=== PATIENT | male | born 1950 | race African-American/Black ===

== ENCOUNTER 2023-06-23 23:51 | Emergency (ER) | payer OTHER, MEDICAID ==
[~2023-06-23] VITALS: Ht 175.3 cm; Wt 70.3 kg
[2023-06-24 00:48] VITALS: BP 212/132; RESP 18; TEMP 97.9; O2SAT 99
[2023-06-24 00:50] VITALS: PULSE 85
[2023-06-24] MEDS ORDERED: ACETAMINOPHEN 325MG TABLET PO ONE (02:15)
[2023-06-24] MEDS ORDERED: IBUPROFEN 800MG TABLET PO ONE (02:15)
[2023-06-24] MEDS ORDERED: IBUPROFEN 400MG TABLET PO NR (02:15)
[2023-06-24] MEDS ORDERED: GABA-532 MT (05:37)
[2023-06-24] MEDS ORDERED: TOPUD MT (05:37)
[2023-06-24] MEDS ORDERED: IBUP-1523 MT (05:37)
== END 2023-06-24 06:14 | disposition home or self-care (01) ==
LOC: ER 23:51
DX: M46.52 Other infective spondylopathies, cervical region (principal); F12.10 Cannabis abuse, uncomplicated; M79.601 Pain in right arm
CPT/HCPCS: 72040; 73030; 99284

== ENCOUNTER 2024-03-22 20:20 | Emergency (ER) | payer MEDICARE, MEDICAID ==
[~2024-03-22] VITALS: Ht 172.7 cm; Wt 75.0 kg
[~2024-03-22 20:20] MED LIST: GABA-532 MT; IBUP-1523 MT; TOPUD MT
[2024-03-22 20:43] VITALS: BP 177/93; PULSE 18; RESP 18; TEMP 98.5; O2SAT 98
== END 2024-03-23 00:23 | disposition left against medical advice (07) ==
LOC: ER 20:20
DX: H57.11 Ocular pain, right eye (principal); Z53.21 Procedure and treatment not carried out due to patient leaving prior to being seen by health care provider
CPT/HCPCS: 99281